=== PATIENT | female | born 1935 | race Caucasian/White ===

== ENCOUNTER 2017-11-07 02:00 | Inpatient (IN) | payer MEDICARE ==
[~2017-11-07] VITALS: Ht 129.5 cm; Wt 52.4 kg
[~2017-11-07 02:00] MED LIST: AMLO10TA2 PO; ASPI-496 PO; ATORVASTATIN PO; DIAZ5TAB4 PO; DOCU-131 PO; DOXY100T PO; DULO30CA2 PO; ESTR0.6246 PO; FENT1PAT9 TD; HYDR-3245 PO; LEVO50TA5 PO; LISI-467 PO; MAG OX PO; METH500T97 PO; MULT-717 PO; PROAIR INH; TOLT4CAP PO; VITAMIN C PO
[2017-11-07] MEDS ORDERED: METH750T2 PO (02:10)
[2017-11-07] MEDS ORDERED: ATOR20TA9 PO (02:28)
[2017-11-07] MEDS ORDERED: MIRA50TA PO (02:28)
[2017-11-07] MEDS ORDERED: MORPHINE SULFATE 4 MG/ML, 1ML IVPush PRN (02:30)
[2017-11-07] MEDS ORDERED: ONDANSETRON 2MG/ML, 2ML ONE (02:30)
[2017-11-07] MEDS ORDERED: MORPHINE SULFATE 4 MG/ML, 1ML ONE ×2 (02:30→12:56)
[2017-11-07] MEDS ORDERED: ONDANSETRON 2MG/ML, 2ML IVPush ONE (02:30)
[2017-11-07 02:57] LABS: BASOPHILS # (AUTO) 0.01 x10^3/uL (0-0.1); BASOPHILS % (AUTO) 0 % (0-1); EOSINOPHILS # (AUTO) 0.03 x10^3/uL (0-0.4); EOSINOPHILS % (AUTO) 0 % (1-7); LYMPHOCYTES # (AUTO) 0.59 x10^3/uL (1-3.4); LYMPHOCYTES % (AUTO) 6 % (22-44); MD NO; MEAN CORPUSCULAR HEMOGLOBIN 31.7 pg (27.0-34.8); MEAN CORPUSCULAR HGB CONC 33.2 g/dL (32.4-35.8); MEAN CORPUSCULAR VOLUME 95.4 fL (80-100); MEAN PLATELET VOLUME 9.2 fL (7.4-10.4); MONOCYTES # (AUTO) 0.04 x10^3/uL (0.2-0.8); MONOCYTES % (AUTO) 0 % (2-9); NEUTROPHILS # (AUTO) 8.96 x10^3/uL (1.8-6.8); NEUTROPHILS % (AUTO) 93 % (42-75); PLATELET COUNT 159 x10^3/uL (130-400); RED BLOOD COUNT 4.44 x10^6/uL (3.82-5.3); RED CELL DISTRIBUTION WIDTH 13.9 % (9.6-15.2)
[2017-11-07 03:06] LABS: ALANINE AMINOTRANSFERASE 167 U/L (12-78); ALBUMIN 3.9 g/dL (3.4-5.0); ANION GAP 13 mmol/L (5-15); CALCIUM 8.6 mg/dL (8.5-10.1); CHLORIDE 103 mmol/L (98-107); CREATININE 1.56 mg/dL (0.55-1.02)
[2017-11-07 03:10] LABS: ALKALINE PHOSPHATASE 335 U/L (45-117); BILIRUBIN,TOTAL 1.3 mg/dL (0.2-1.0); TOTAL PROTEIN 8.2 g/dL (6.4-8.2); TROPONIN I < 0.015 ng/mL (0.000-0.045)
[2017-11-07] MEDS ORDERED: SODIUM CHLORIDE 0.9% 1,000ML IVBOLUS ONE ×2 (03:30→04:00)
[2017-11-07] MEDS ORDERED: morphine SULFATE 10 MG/ML, 1ML IVPush PRN (04:30)
[2017-11-07] MEDS ORDERED: ONDANSETRON 2MG/ML, 2ML IVPush PRN (04:30)
[2017-11-07] MEDS ORDERED: hydrALAzine 20 MG/ML, 1ML IVPush PRN (04:30)
[2017-11-07] MEDS ORDERED: PROAIR 90 MCG INH PRN (04:30)
[2017-11-07 04:48] LABS: CULTURE INDICATED? NO; MICROSCOPIC NOT IND
[2017-11-07] MEDS: D5%-0.9% NACL 1,000 ML IV SCH ×2 (05:32→15:43)
[2017-11-07] MEDS ORDERED: OMEP40CA6 PO (05:42)
[2017-11-07 06:26] VITALS: BP 114/56
[2017-11-07 07:27] LABS: ALANINE AMINOTRANSFERASE 360 U/L (12-78); ALBUMIN 3.1 g/dL (3.4-5.0); ANION GAP 10 mmol/L (5-15); CALCIUM 7.5 mg/dL (8.5-10.1); CHLORIDE 106 mmol/L (98-107); CREATININE 1.44 mg/dL (0.55-1.02)
[2017-11-07 07:29] LABS: ALKALINE PHOSPHATASE 328 U/L (45-117); BILIRUBIN,TOTAL 1.5 mg/dL (0.2-1.0); TOTAL PROTEIN 6.3 g/dL (6.4-8.2)
[2017-11-07 07:50] VITALS: BP 104/65
[2017-11-07] MEDS: TEMPLATE NON-FORMULARY MED. (Mirabegron** (Myrbetriq**) 50 MG) HOMEMEDPO SCH (08:12)
[2017-11-07] MEDS ORDERED: ENOXAPARIN 30 MG/0.3 ML SQ SCH (09:00)
[2017-11-07] MEDS ORDERED: DULOXETINE 30 MG CAPSULE.DR PO SCH (09:00)
[2017-11-07] MEDS: ESTROGEN CONJUGATED 0.3 MG TABLET PO SCH (09:39)
[2017-11-07] MEDS: MAGNESIUM OXIDE 400 MG TABLET PO SCH (09:39)
[2017-11-07] MEDS: AMLODIPINE 5 MG TABLET PO SCH (09:39)
[2017-11-07] MEDS: METHOCARBAMOL 750 MG TABLET PO SCH ×3 (09:40→20:24)
[2017-11-07] MEDS: LEVOTHYROXINE 50 MCG TABLET PO SCH (09:40)
[2017-11-07] MEDS ORDERED: BISACODYL 5 MG EC TABLET PO PRN (10:00)
[2017-11-07 11:50] LABS: ALBUMIN 3.1 g/dL (3.4-5.0); ANION GAP 11 mmol/L (5-15); CALCIUM 7.9 mg/dL (8.5-10.1); CHLORIDE 107 mmol/L (98-107)
[2017-11-07 11:55] LABS: ALANINE AMINOTRANSFERASE 384 U/L (12-78); ALKALINE PHOSPHATASE 342 U/L (45-117); BILIRUBIN,TOTAL 1.7 mg/dL (0.2-1.0); TOTAL PROTEIN 6.6 g/dL (6.4-8.2)
[2017-11-07 12:58] LABS: CULTURE INDICATED? YES; MICROSCOPIC INDICATED
[2017-11-07] MEDS: MORPHINE SULFATE 4 MG/ML, 1ML IVPush PRN (13:01)
[2017-11-07 13:08] VITALS: BP 126/66
[2017-11-07 19:07] VITALS: BP 121/68
[2017-11-07] MEDS: ATORVASTATIN 20 MG TABLET PO SCH (20:24)
[2017-11-07] MEDS ORDERED: DICLOFENAC SODIUM HOMETD PRN (22:00)
[2017-11-07] MEDS: ALBUTEROL SULFATE 2.5 MG/3 ML NPPB PRN (22:35)
[2017-11-08 01:11] VITALS: BP 111/60
[2017-11-08] MEDS: D5%-0.9% NACL 1,000 ML IV SCH ×3 (01:32→22:08)
[2017-11-08 05:58] LABS: MEAN CORPUSCULAR HEMOGLOBIN 32.3 pg (27.0-34.8); MEAN CORPUSCULAR HGB CONC 33.5 g/dL (32.4-35.8); MEAN CORPUSCULAR VOLUME 96.4 fL (80-100); RED BLOOD COUNT 3.49 x10^6/uL (3.82-5.3); RED CELL DISTRIBUTION WIDTH 14.3 % (9.6-15.2)
[2017-11-08 06:02] LABS: ALBUMIN 2.8 g/dL (3.4-5.0); ANION GAP 8 mmol/L (5-15); CALCIUM 7.3 mg/dL (8.5-10.1); CHLORIDE 109 mmol/L (98-107)
[2017-11-08 06:06] LABS: ALANINE AMINOTRANSFERASE 244 U/L (12-78); ALKALINE PHOSPHATASE 335 U/L (45-117); BILIRUBIN, DIRECT 0.7 mg/dL (0.1-0.2); BILIRUBIN,TOTAL 1.2 mg/dL (0.2-1.0); CREATININE 1.15 mg/dL (0.55-1.02); TOTAL PROTEIN 6.2 g/dL (6.4-8.2)
[2017-11-08 07:05] VITALS: BP 111/56
[2017-11-08 07:48] LABS: BASOPHILS # (AUTO) 0.03 x10^3/uL (0-0.1); BASOPHILS % (AUTO) 0 % (0-1); EOSINOPHILS % (AUTO) 2 % (1-7); LYMPHOCYTES # (AUTO) 1.54 x10^3/uL (1-3.4); LYMPHOCYTES % (AUTO) 14 % (22-44); MD SCAN; MEAN PLATELET VOLUME 9.4 fL (7.4-10.4); MONOCYTES # (AUTO) 0.54 x10^3/uL (0.2-0.8); MONOCYTES % (AUTO) 5 % (2-9); NEUTROPHILS % (AUTO) 78 % (42-75); PLATELET COUNT 115 x10^3/uL (130-400)
[2017-11-08] MEDS: NEUTRA PHOS K 250 MG TABLET PO SCH ×2 (08:19→20:18)
[2017-11-08] MEDS: ESTROGEN CONJUGATED 0.3 MG TABLET PO SCH (08:19)
[2017-11-08] MEDS: LEVOTHYROXINE 50 MCG TABLET PO SCH (08:20)
[2017-11-08] MEDS: METHOCARBAMOL 750 MG TABLET PO SCH ×3 (08:20→20:19)
[2017-11-08] MEDS: AMLODIPINE 5 MG TABLET PO SCH (08:20)
[2017-11-08 14:10] VITALS: BP 148/68
[2017-11-08 19:28] VITALS: BP 127/69
[2017-11-08] MEDS: DULOXETINE 30 MG CAPSULE.DR PO SCH (20:19)
[2017-11-08] MEDS: ATORVASTATIN 20 MG TABLET PO SCH (20:19)
[2017-11-08] MEDS: TEMPLATE NON-FORMULARY MED. (Mirabegron** (Myrbetriq**) 50 MG) HOMEMEDPO SCH (21:00)
[2017-11-09 01:43] VITALS: BP 159/79
[2017-11-09 05:44] LABS: ALBUMIN 3.1 g/dL (3.4-5.0); ANION GAP 10 mmol/L (5-15); BASOPHILS # (AUTO) 0.04 x10^3/uL (0-0.1); BASOPHILS % (AUTO) 0 % (0-1); CALCIUM 7.6 mg/dL (8.5-10.1); CHLORIDE 109 mmol/L (98-107); EOSINOPHILS % (AUTO) 3 % (1-7); LYMPHOCYTES # (AUTO) 1.23 x10^3/uL (1-3.4); LYMPHOCYTES % (AUTO) 15 % (22-44); MD NO; MEAN CORPUSCULAR HEMOGLOBIN 31.3 pg (27.0-34.8); MEAN CORPUSCULAR HGB CONC 33.1 g/dL (32.4-35.8); MEAN CORPUSCULAR VOLUME 94.6 fL (80-100); MEAN PLATELET VOLUME 9.5 fL (7.4-10.4); MONOCYTES # (AUTO) 0.53 x10^3/uL (0.2-0.8); MONOCYTES % (AUTO) 7 % (2-9); NEUTROPHILS # (AUTO) 6.11 x10^3/uL (1.8-6.8); NEUTROPHILS % (AUTO) 75 % (42-75); PLATELET COUNT 127 x10^3/uL (130-400); RED BLOOD COUNT 4.08 x10^6/uL (3.82-5.3); RED CELL DISTRIBUTION WIDTH 14.1 % (9.6-15.2)
[2017-11-09 05:48] LABS: ALANINE AMINOTRANSFERASE 183 U/L (12-78); ALKALINE PHOSPHATASE 324 U/L (45-117); BILIRUBIN, DIRECT 0.3 mg/dL (0.1-0.2); BILIRUBIN,TOTAL 0.9 mg/dL (0.2-1.0); CREATININE 0.93 mg/dL (0.55-1.02); TOTAL PROTEIN 6.7 g/dL (6.4-8.2)
[2017-11-09] MEDS ORDERED: POTASSIUM CHLORIDE 20 MEQ in SODIUM CHLORIDE 0.9% 250 ML IV ONE (07:00)
[2017-11-09] MEDS ORDERED: POTASSIUM CHLORIDE 40 MEQ in SODIUM CHLORIDE 0.9% 500 ML IV ONE (07:00)
[2017-11-09 07:20] VITALS: BP 144/84
[2017-11-09] MEDS ORDERED: CEFTRIAXONE 2 GM in DEXTROSE 5% 50 ML IV SCH (08:00)
[2017-11-09] MEDS: METHOCARBAMOL 750 MG TABLET PO SCH ×3 (08:56→20:38)
[2017-11-09] MEDS: NEUTRA PHOS K 250 MG TABLET PO SCH ×2 (08:56→20:38)
[2017-11-09] MEDS: CEFTRIAXONE 2 GM in DEXTROSE 5% 50 ML IVPB SCH (08:56)
[2017-11-09] MEDS: MAGNESIUM OXIDE 400 MG TABLET PO SCH (08:56)
[2017-11-09] MEDS: LEVOTHYROXINE 50 MCG TABLET PO SCH (08:56)
[2017-11-09] MEDS: ESTROGEN CONJUGATED 0.3 MG TABLET PO SCH (08:57)
[2017-11-09] MEDS: AMLODIPINE 5 MG TABLET PO SCH (08:57)
[2017-11-09] MEDS ORDERED: FENTANYL PF 250 MCG/5ML ONE (11:50)
[2017-11-09] MEDS ORDERED: PROPOFOL 10 MG/ML, 20ML ONE (11:50)
[2017-11-09] MEDS ORDERED: ROCURONIUM 10MG/ML,5ML ONE (11:51)
[2017-11-09] MEDS ORDERED: DEXAMETHASONE 4 MG/ML, 1ML ONE ×2 (11:52)
[2017-11-09] MEDS ORDERED: GLYCOPYRROLATE 0.4 MG/2 ML, 2ML ONE ×2 (11:52)
[2017-11-09] MEDS ORDERED: ONDANSETRON 2MG/ML, 2ML ONE (11:52)
[2017-11-09] MEDS ORDERED: NEOSTIGMINE 1 MG/ML, 10ML ONE (11:52)
[2017-11-09] MEDS ORDERED: BUPIVACAINE/PF 0.5% ONE (12:07)
[2017-11-09] MEDS ORDERED: EPINEPHRINE 1 MG/ML, 1ML ONE (12:08)
[2017-11-09] MEDS ORDERED: HYDROmorphone 1 MG/ML, 1ML IV PRN (12:30)
[2017-11-09] MEDS ORDERED: morphine SULFATE 10 MG/ML, 1ML IV PRN (12:30)
[2017-11-09] MEDS ORDERED: ONDANSETRON 2MG/ML, 2ML IVPush PRN (12:30)
[2017-11-09] MEDS ORDERED: PROMETHAZINE 12.5 MG SUPP PR PRN (12:30)
[2017-11-09] MEDS ORDERED: hydrALAzine 20 MG/ML, 1ML IV PRN (12:30)
[2017-11-09] MEDS ORDERED: PROMETHAZINE 25 MG/ML, 1ML IV PRN (12:30)
[2017-11-09] MEDS ORDERED: LABETALOL 5MG/ML, 20ML IV PRN (12:30)
[2017-11-09] MEDS ORDERED: FENTANYL PF 100 MCG/2ML IV PRN (12:30)
[2017-11-09] MEDS ORDERED: MEPERIDINE/PF 25MG/0.5ML IVPush PRN (12:30)
[2017-11-09] MEDS ORDERED: OXYcodone 5 MG/5 ML ORAL.SOL UDC PO PRN (12:30)
[2017-11-09] MEDS ORDERED: BUPIVACAINE/PF 0.5% INFIL ONE ×2 (12:55→12:56)
[2017-11-09] MEDS ORDERED: MORPHINE SULFATE 4 MG/ML, 1ML ONE (13:55)
[2017-11-09] MEDS ORDERED: MEPERIDINE/PF 25MG/0.5ML ONE (14:11)
[2017-11-09 14:50] VITALS: BP 124/72
[2017-11-09] MEDS: D5%-0.9% NACL 1,000 ML IV SCH ×2 (15:00→15:14)
[2017-11-09] MEDS: MORPHINE SULFATE 4 MG/ML, 1ML IVPush PRN ×3 (15:25→23:11)
[2017-11-09 18:37] LABS: ANION GAP 10 mmol/L (5-15); CALCIUM 7.8 mg/dL (8.5-10.1); CHLORIDE 110 mmol/L (98-107)
[2017-11-09 19:46] VITALS: BP 141/78
[2017-11-09] MEDS: DULOXETINE 30 MG CAPSULE.DR PO SCH (20:38)
[2017-11-09] MEDS: TEMPLATE NON-FORMULARY MED. (Mirabegron** (Myrbetriq**) 50 MG) HOMEMEDPO SCH (20:38)
[2017-11-09] MEDS: ATORVASTATIN 20 MG TABLET PO SCH (20:38)
[2017-11-10 02:04] VITALS: BP 131/76
[2017-11-10 05:03] LABS: BASOPHILS # (AUTO) 0.03 x10^3/uL (0-0.1); BASOPHILS % (AUTO) 0 % (0-1); EOSINOPHILS % (AUTO) 0 % (1-7); LYMPHOCYTES % (AUTO) 10 % (22-44); MD NO; MEAN CORPUSCULAR HEMOGLOBIN 31.4 pg (27.0-34.8); MEAN CORPUSCULAR VOLUME 95.1 fL (80-100); MEAN PLATELET VOLUME 9.4 fL (7.4-10.4); MONOCYTES # (AUTO) 0.87 x10^3/uL (0.2-0.8); MONOCYTES % (AUTO) 7 % (2-9); NEUTROPHILS # (AUTO) 10.39 x10^3/uL (1.8-6.8); NEUTROPHILS % (AUTO) 83 % (42-75); PLATELET COUNT 137 x10^3/uL (130-400); RED BLOOD COUNT 3.89 x10^6/uL (3.82-5.3)
[2017-11-10 05:14] LABS: CHLORIDE 109 mmol/L (98-107)
[2017-11-10 05:25] LABS: ALANINE AMINOTRANSFERASE 160 U/L (12-78); ALBUMIN 2.9 g/dL (3.4-5.0); ALKALINE PHOSPHATASE 268 U/L (45-117); ANION GAP 8 mmol/L (5-15); BILIRUBIN,TOTAL 0.7 mg/dL (0.2-1.0); CALCIUM 7.7 mg/dL (8.5-10.1); CREATININE 1.02 mg/dL (0.55-1.02)
[2017-11-10 07:12] VITALS: BP 143/86
[2017-11-10] MEDS: ESTROGEN CONJUGATED 0.3 MG TABLET PO SCH (08:23)
[2017-11-10] MEDS: NEUTRA PHOS K 250 MG TABLET PO SCH ×2 (08:23→21:06)
[2017-11-10] MEDS: CEFTRIAXONE 2 GM in DEXTROSE 5% 50 ML IVPB SCH (08:23)
[2017-11-10] MEDS: AMLODIPINE 5 MG TABLET PO SCH (08:24)
[2017-11-10] MEDS: LEVOTHYROXINE 50 MCG TABLET PO SCH (08:24)
[2017-11-10] MEDS: METHOCARBAMOL 750 MG TABLET PO SCH ×4 (08:24→21:06)
[2017-11-10] MEDS ORDERED: OXYcodone/APAP 5/325MG TABLET PO PRN (08:30)
[2017-11-10] MEDS: HYDROcodone/APAP 5/325 TABLET PO PRN ×2 (10:35→17:26)
[2017-11-10] MEDS ORDERED: ENOXAPARIN 30 MG/0.3 ML ONE (12:13)
[2017-11-10] MEDS: ENOXAPARIN 30 MG/0.3 ML SQ SCH (12:19)
[2017-11-10 14:00] VITALS: BP 140/77
[2017-11-10] MEDS: TEMPLATE NON-FORMULARY MED. (Mirabegron** (Myrbetriq**) 50 MG) HOMEMEDPO SCH ×2 (15:48→21:00)
[2017-11-10] MEDS: D5%-0.9% NACL 1,000 ML IV SCH (17:26)
[2017-11-10 19:25] VITALS: BP 161/74
[2017-11-10] MEDS: DULOXETINE 30 MG CAPSULE.DR PO SCH (21:05)
[2017-11-10] MEDS: ATORVASTATIN 20 MG TABLET PO SCH (21:06)
[2017-11-11] MEDS: HYDROcodone/APAP 5/325 TABLET PO PRN (00:01)
[2017-11-11] MEDS: ENOXAPARIN 30 MG/0.3 ML SQ SCH ×2 (00:01→14:08)
[2017-11-11] MEDS: ALBUTEROL SULFATE 2.5 MG/3 ML NPPB PRN (00:16)
[2017-11-11 00:30] VITALS: BP 147/87
[2017-11-11] MEDS ORDERED: KETOROLAC 30 MG/1 ML IV ONE (02:30)
[2017-11-11] MEDS: D5%-0.9% NACL 1,000 ML IV SCH ×2 (04:56→20:30)
[2017-11-11 07:54] LABS: CALCIUM 7.7 mg/dL (8.5-10.1); CHLORIDE 108 mmol/L (98-107)
[2017-11-11 07:56] LABS: ALKALINE PHOSPHATASE 648 U/L (45-117); TOTAL PROTEIN 7.3 g/dL (6.4-8.2)
[2017-11-11 08:04] LABS: BASOPHILS # (AUTO) 0.05 x10^3/uL (0-0.1); BASOPHILS % (AUTO) 1 % (0-1); EOSINOPHILS # (AUTO) 0.08 x10^3/uL (0-0.4); EOSINOPHILS % (AUTO) 1 % (1-7); LYMPHOCYTES # (AUTO) 2.02 x10^3/uL (1-3.4); LYMPHOCYTES % (AUTO) 24 % (22-44); MD NO; MEAN CORPUSCULAR HEMOGLOBIN 31.7 pg (27.0-34.8); MEAN CORPUSCULAR HGB CONC 33.7 g/dL (32.4-35.8); MEAN CORPUSCULAR VOLUME 94.1 fL (80-100); MEAN PLATELET VOLUME 9.7 fL (7.4-10.4); MONOCYTES # (AUTO) 0.62 x10^3/uL (0.2-0.8); MONOCYTES % (AUTO) 7 % (2-9); NEUTROPHILS # (AUTO) 5.71 x10^3/uL (1.8-6.8); NEUTROPHILS % (AUTO) 67 % (42-75); PLATELET COUNT 143 x10^3/uL (130-400); RED BLOOD COUNT 4.22 x10^6/uL (3.82-5.3); RED CELL DISTRIBUTION WIDTH 14.2 % (9.6-15.2)
[2017-11-11 08:15] LABS: ALANINE AMINOTRANSFERASE 207 U/L (12-78); ANION GAP 12 mmol/L (5-15); CREATININE 0.94 mg/dL (0.55-1.02)
[2017-11-11 08:16] LABS: BILIRUBIN,TOTAL 2.6 mg/dL (0.2-1.0)
[2017-11-11] MEDS: LEVOTHYROXINE 50 MCG TABLET PO SCH (09:00)
[2017-11-11] MEDS: AMLODIPINE 5 MG TABLET PO SCH (09:00)
[2017-11-11] MEDS ORDERED: POTASSIUM CHLORIDE 40 MEQ in SODIUM CHLORIDE 0.9% 500 ML IV ONE (09:00)
[2017-11-11] MEDS: MAGNESIUM OXIDE 400 MG TABLET PO SCH (09:00)
[2017-11-11] MEDS: NEUTRA PHOS K 250 MG TABLET PO SCH ×2 (09:00→21:07)
[2017-11-11] MEDS: ESTROGEN CONJUGATED 0.3 MG TABLET PO SCH (09:00)
[2017-11-11] MEDS: CEFTRIAXONE 2 GM in DEXTROSE 5% 50 ML IVPB SCH (09:21)
[2017-11-11 09:49] VITALS: BP 146/82
[2017-11-11] MEDS: METRONIDAZOLE PMX 500MG/100ML 100 ML IV SCH ×2 (11:17→18:15)
[2017-11-11] MEDS: KETOROLAC 30 MG/1 ML IVPush PRN (14:09)
[2017-11-11 14:39] VITALS: BP 150/96
[2017-11-11 20:15] VITALS: BP 143/80
[2017-11-11] MEDS: TEMPLATE NON-FORMULARY MED. (Mirabegron** (Myrbetriq**) 50 MG) HOMEMEDPO SCH (21:00)
[2017-11-11] MEDS: DULOXETINE 30 MG CAPSULE.DR PO SCH (21:07)
[2017-11-11] MEDS: ATORVASTATIN 20 MG TABLET PO SCH (21:07)
[2017-11-12] MEDS: ENOXAPARIN 30 MG/0.3 ML SQ SCH ×2 (00:30→12:30)
[2017-11-12] MEDS: KETOROLAC 30 MG/1 ML IVPush PRN ×2 (00:45→10:27)
[2017-11-12 01:07] VITALS: BP 139/78
[2017-11-12] MEDS: METRONIDAZOLE PMX 500MG/100ML 100 ML IV SCH ×3 (01:59→18:24)
[2017-11-12 05:42] LABS: MICROSCOPIC INDICATED
[2017-11-12 05:51] LABS: CULTURE INDICATED? NO
[2017-11-12 05:55] LABS: ALANINE AMINOTRANSFERASE 183 U/L (12-78); ALBUMIN 2.9 g/dL (3.4-5.0); ANION GAP 10 mmol/L (5-15); BILIRUBIN, DIRECT 1.3 mg/dL (0.1-0.2); CALCIUM 7.8 mg/dL (8.5-10.1); CHLORIDE 108 mmol/L (98-107); CREATININE 0.83 mg/dL (0.55-1.02)
[2017-11-12 05:58] LABS: ALKALINE PHOSPHATASE 782 U/L (45-117); BILIRUBIN,INDIRECT 0.7 mg/dL (0.0-2.0); TOTAL PROTEIN 6.9 g/dL (6.4-8.2)
[2017-11-12 06:04] LABS: BASOPHILS # (AUTO) 0.08 x10^3/uL (0-0.1); BASOPHILS % (AUTO) 1 % (0-1); EOSINOPHILS % (AUTO) 2 % (1-7); LYMPHOCYTES % (AUTO) 21 % (22-44); MD NO; MEAN CORPUSCULAR HEMOGLOBIN 31.5 pg (27.0-34.8); MEAN CORPUSCULAR HGB CONC 33.4 g/dL (32.4-35.8); MEAN CORPUSCULAR VOLUME 94.4 fL (80-100); MEAN PLATELET VOLUME 9.6 fL (7.4-10.4); MONOCYTES # (AUTO) 0.67 x10^3/uL (0.2-0.8); MONOCYTES % (AUTO) 6 % (2-9); NEUTROPHILS # (AUTO) 7.24 x10^3/uL (1.8-6.8); NEUTROPHILS % (AUTO) 70 % (42-75); PLATELET COUNT 162 x10^3/uL (130-400); RED BLOOD COUNT 4.24 x10^6/uL (3.82-5.3); RED CELL DISTRIBUTION WIDTH 13.9 % (9.6-15.2)
[2017-11-12 08:29] VITALS: BP 156/95
[2017-11-12] MEDS: ESTROGEN CONJUGATED 0.3 MG TABLET PO SCH ×2 (08:36→12:20)
[2017-11-12] MEDS: NEUTRA PHOS K 250 MG TABLET PO SCH ×2 (08:36→20:02)
[2017-11-12] MEDS: LEVOTHYROXINE 50 MCG TABLET PO SCH ×2 (08:36→12:21)
[2017-11-12] MEDS: CEFTRIAXONE 2 GM in DEXTROSE 5% 50 ML IVPB SCH (08:42)
[2017-11-12] MEDS: D5%-0.9% NACL 1,000 ML IV SCH (10:27)
[2017-11-12] MEDS ORDERED: POTASSIUM CHLORIDE 20 MEQ TAB.ER.PRT PO ONE ×2 (11:30→15:30)
[2017-11-12] MEDS: AMLODIPINE 5 MG TABLET PO SCH (12:21)
[2017-11-12 13:02] VITALS: BP 135/79
[2017-11-12 17:45] LABS: ALBUMIN 2.8 g/dL (3.4-5.0); ANION GAP 10 mmol/L (5-15); CALCIUM 7.8 mg/dL (8.5-10.1); CHLORIDE 111 mmol/L (98-107); CREATININE 0.94 mg/dL (0.55-1.02)
[2017-11-12 18:58] VITALS: BP 126/74
[2017-11-12] MEDS: DULOXETINE 30 MG CAPSULE.DR PO SCH (20:02)
[2017-11-12] MEDS: ATORVASTATIN 20 MG TABLET PO SCH (20:02)
[2017-11-12] MEDS: TEMPLATE NON-FORMULARY MED. (Mirabegron** (Myrbetriq**) 50 MG) HOMEMEDPO SCH (20:03)
[2017-11-12] MEDS ORDERED: METHOCARBAMOL 750 MG TABLET PO ONE (22:30)
[2017-11-12 23:37] LABS: CLOSTRIDIUM DIFFICILE ANTIGEN NEGATIVE; CLOSTRIDIUM DIFFICILE TOXIN NEGATIVE (Negative)
[2017-11-13] MEDS: ENOXAPARIN 30 MG/0.3 ML SQ SCH ×2 (00:30→13:16)
[2017-11-13 01:30] VITALS: BP 132/74
[2017-11-13] MEDS: METRONIDAZOLE PMX 500MG/100ML 100 ML IV SCH ×3 (02:30→17:52)
[2017-11-13] MEDS: D5%-0.9% NACL 1,000 ML IV SCH (02:37)
[2017-11-13 05:32] LABS: BASOPHILS # (AUTO) 0.14 x10^3/uL (0-0.1); BASOPHILS % (AUTO) 1 % (0-1); EOSINOPHILS # (AUTO) 0.31 x10^3/uL (0-0.4); EOSINOPHILS % (AUTO) 3 % (1-7); LYMPHOCYTES # (AUTO) 2.07 x10^3/uL (1-3.4); LYMPHOCYTES % (AUTO) 21 % (22-44); MD NO; MEAN CORPUSCULAR HEMOGLOBIN 31.4 pg (27.0-34.8); MEAN CORPUSCULAR VOLUME 95.2 fL (80-100); MEAN PLATELET VOLUME 9.6 fL (7.4-10.4); MONOCYTES # (AUTO) 0.57 x10^3/uL (0.2-0.8); MONOCYTES % (AUTO) 6 % (2-9); NEUTROPHILS # (AUTO) 6.97 x10^3/uL (1.8-6.8); NEUTROPHILS % (AUTO) 69 % (42-75); PLATELET COUNT 199 x10^3/uL (130-400); RED BLOOD COUNT 4.12 x10^6/uL (3.82-5.3); RED CELL DISTRIBUTION WIDTH 13.8 % (9.6-15.2)
[2017-11-13 05:44] LABS: CHLORIDE 112 mmol/L (98-107)
[2017-11-13 06:00] LABS: ALANINE AMINOTRANSFERASE 129 U/L (12-78); ALBUMIN 2.9 g/dL (3.4-5.0); ALKALINE PHOSPHATASE 629 U/L (45-117); ANION GAP 11 mmol/L (5-15); BILIRUBIN,TOTAL 1.1 mg/dL (0.2-1.0); CALCIUM 8.1 mg/dL (8.5-10.1); CREATININE 0.81 mg/dL (0.55-1.02); TOTAL PROTEIN 6.9 g/dL (6.4-8.2)
[2017-11-13 08:03] VITALS: BP 152/81
[2017-11-13] MEDS: NEUTRA PHOS K 250 MG TABLET PO SCH ×2 (08:57→21:49)
[2017-11-13] MEDS: LEVOTHYROXINE 50 MCG TABLET PO SCH (08:57)
[2017-11-13] MEDS: CEFTRIAXONE 2 GM in DEXTROSE 5% 50 ML IVPB SCH (08:57)
[2017-11-13] MEDS: ESTROGEN CONJUGATED 0.3 MG TABLET PO SCH (08:58)
[2017-11-13] MEDS: AMLODIPINE 5 MG TABLET PO SCH (08:58)
[2017-11-13] MEDS ORDERED: POTASSIUM CHLORIDE 20 MEQ TAB.ER.PRT PO ONE (10:30)
[2017-11-13 12:34] VITALS: BP 150/76
[2017-11-13] MEDS: LISINOPRIL 20 MG TABLET PO SCH (17:30)
[2017-11-13 17:51] VITALS: BP 119/84
[2017-11-13 19:27] VITALS: BP 134/78
[2017-11-13] MEDS ORDERED: AMLODIPINE 5 MG TABLET PO SCH (21:00)
[2017-11-13] MEDS: TEMPLATE NON-FORMULARY MED. (Mirabegron** (Myrbetriq**) 50 MG) HOMEMEDPO SCH (21:00)
[2017-11-13] MEDS: ATORVASTATIN 20 MG TABLET PO SCH (21:49)
[2017-11-13] MEDS: DULOXETINE 30 MG CAPSULE.DR PO SCH (21:50)
[2017-11-14] MEDS: ENOXAPARIN 30 MG/0.3 ML SQ SCH ×2 (00:30→12:30)
[2017-11-14] MEDS: METRONIDAZOLE PMX 500MG/100ML 100 ML IV SCH ×2 (01:18→10:20)
[2017-11-14 01:41] VITALS: BP 137/78
[2017-11-14 04:56] LABS: BASOPHILS # (AUTO) 0.06 x10^3/uL (0-0.1); BASOPHILS % (AUTO) 1 % (0-1); EOSINOPHILS # (AUTO) 0.35 x10^3/uL (0-0.4); EOSINOPHILS % (AUTO) 3 % (1-7); LYMPHOCYTES # (AUTO) 2.39 x10^3/uL (1-3.4); LYMPHOCYTES % (AUTO) 23 % (22-44); MD NO; MEAN CORPUSCULAR HEMOGLOBIN 31.5 pg (27.0-34.8); MEAN CORPUSCULAR HGB CONC 33.4 g/dL (32.4-35.8); MEAN CORPUSCULAR VOLUME 94.4 fL (80-100); MEAN PLATELET VOLUME 9.3 fL (7.4-10.4); MONOCYTES # (AUTO) 0.62 x10^3/uL (0.2-0.8); MONOCYTES % (AUTO) 6 % (2-9); NEUTROPHILS # (AUTO) 7.06 x10^3/uL (1.8-6.8); NEUTROPHILS % (AUTO) 67 % (42-75); PLATELET COUNT 243 x10^3/uL (130-400); RED BLOOD COUNT 4.27 x10^6/uL (3.82-5.3); RED CELL DISTRIBUTION WIDTH 13.8 % (9.6-15.2)
[2017-11-14 05:00] LABS: ALANINE AMINOTRANSFERASE 102 U/L (12-78); ANION GAP 11 mmol/L (5-15); CALCIUM 8.4 mg/dL (8.5-10.1); CHLORIDE 109 mmol/L (98-107)
[2017-11-14 05:02] LABS: ALKALINE PHOSPHATASE 548 U/L (45-117); BILIRUBIN,TOTAL 0.8 mg/dL (0.2-1.0); TOTAL PROTEIN 7.3 g/dL (6.4-8.2)
[2017-11-14] MEDS ORDERED: POTASSIUM CHLORIDE 20 MEQ TAB.ER.PRT PO ONE (07:30)
[2017-11-14 07:49] VITALS: BP 135/78
[2017-11-14] MEDS: NEUTRA PHOS K 250 MG TABLET PO SCH (08:42)
[2017-11-14] MEDS: ESTROGEN CONJUGATED 0.3 MG TABLET PO SCH (08:42)
[2017-11-14] MEDS: LEVOTHYROXINE 50 MCG TABLET PO SCH (08:43)
[2017-11-14] MEDS: MAGNESIUM OXIDE 400 MG TABLET PO SCH (08:43)
[2017-11-14] MEDS: LISINOPRIL 20 MG TABLET PO SCH (08:43)
[2017-11-14] MEDS: CEFTRIAXONE 2 GM in DEXTROSE 5% 50 ML IVPB SCH (08:45)
[2017-11-14 13:42] VITALS: BP 110/72
[2017-11-14] MEDS ORDERED: METR500T PO (14:20)
[2017-11-14] MEDS ORDERED: CIPR500T87 PO (14:20)
== END 2017-11-14 16:55 | disposition home health service (06) | DRG 853 ==
LOC: ED 03:36 → SUATTDRO 04:23 → EDIP 04:24 → 3NE 05:15
PROVIDERS: ADMIT Hospitalist; ATTEND Hospitalist
PROC: 0FT44ZZ Resection of Gallbladder, Percutaneous Endoscopic Approach (ICD-10-PCS; principal; 2017-11-07)
DX: A41.9 Sepsis, unspecified organism (principal); K85.10 Biliary acute pancreatitis without necrosis or infection; E43 Unspecified severe protein-calorie malnutrition; N17.9 Acute kidney failure, unspecified; G93.41 Metabolic encephalopathy; K86.2 Cyst of pancreas; K56.7 Ileus, unspecified; I71.2 Thoracic aortic aneurysm, without rupture; K80.11 Calculus of gallbladder with chronic cholecystitis with obstruction; N39.0 Urinary tract infection, site not specified; K66.8 Other specified disorders of peritoneum; R54 Age-related physical debility; M54.2 Cervicalgia; R74.0 Nonspecific elevation of levels of transaminase and lactic acid dehydrogenase [LDH]; E03.9 Hypothyroidism, unspecified; E78.5 Hyperlipidemia, unspecified; E87.6 Hypokalemia; F17.200 Nicotine dependence, unspecified, uncomplicated; F32.9 Major depressive disorder, single episode, unspecified; G89.29 Other chronic pain; I12.9 Hypertensive chronic kidney disease with stage 1 through stage 4 chronic kidney disease, or unspecified chronic kidney disease; I70.202 Unspecified atherosclerosis of native arteries of extremities, left leg; K57.30 Diverticulosis of large intestine without perforation or abscess without bleeding; K76.0 Fatty (change of) liver, not elsewhere classified; K86.89 Other specified diseases of pancreas; N18.9 Chronic kidney disease, unspecified; N83.209 Unspecified ovarian cyst, unspecified side
CPT/HCPCS: 36415; 70450; 71045; 74018; 74177; 74181; 76700; 80048; 80053; 81001; 81003; 82040; 82247; 82248; 83605; 83690; 83735; 84100; 84145; 84484; 85025; 86141; 87040; 87077; 87086; 87186; 87324; 88304; 93005; 93925; 94640; 96361; 96374; 96375; J0171; J0696; J1100; J1650; J1885; J2175; J2405; J2704; J2710; J3010; J3480; J3490; J7042; J7613; J2270; J7030; J7040

== ENCOUNTER → 2018-01-04 | Outpatient (CLI) | payer MEDICARE ==
[~2018-01-04] MED LIST changes: +ATOR20TA9 PO; +CIPR500T87 PO; +METH750T2 PO; +METR500T PO; +MIRA50TA PO; +OMEP40CA6 PO
== END | disposition home or self-care (01) ==
LOC: CFH 08:53
PROVIDERS: ATTEND Physician Assistant Medical
DX: R19.09 Other intra-abdominal and pelvic swelling, mass and lump (principal)
CPT/HCPCS: 76830